=== PATIENT | female | born 1945 | race American Indian/Alaskan Native ===

== ENCOUNTER 2019-08-15 04:25 | Emergency (ER) | payer OTHER ==
[~2019-08-15] VITALS: Ht 149.9 cm; Wt 86.6 kg
[2019-08-15 04:31] VITALS: BP 150/78
[2019-08-15] MEDS: KETOROLAC 60 MG/2 ML VIAL IM ONE (04:56)
[2019-08-15 06:20] VITALS: BP 150/78
== END 2019-08-15 06:20 | disposition home or self-care (01) ==
LOC: MED 04:25
DX: S60.211A Contusion of right wrist, initial encounter (principal); X58.XXXA Exposure to other specified factors, initial encounter; Y93.89 Activity, other specified; Y92.89 Other specified places as the place of occurrence of the external cause; Y99.8 Other external cause status; Z98.890 Other specified postprocedural states
CPT/HCPCS: 73110; 96372; 99283; J1885; Q0092

== ENCOUNTER 2021-08-30 08:00 | Emergency (ER) | payer MEDICARE, OTHER ==
[~2021-08-30] VITALS: Ht 152.4 cm; Wt 83.9 kg
--- NOTE | 2021-08-30 08:12 | NUR ---
pt ambulated to bed 12
[2021-08-30 08:26] VITALS: BP 119/47
[2021-08-30] MEDS ORDERED: DM H118S7 PO (08:30)
--- NOTE | 2021-08-30 08:44 | NUR ---
Patient denied COVID swab states "receiving COVID swab next week". Flu swab collected, sent to lab with Moriah ENRIQUE.
[2021-08-30 09:45] VITALS: BP 119/47
--- NOTE | 2021-08-30 09:45 | NUR ---
Patient discharged with v/s stable. Written and verbal after care instructions given and explained. Patient alert, oriented and verbalized understanding of instructions. Ambulatory with steady gait. All questions addressed prior to discharge. ID band removed. Patient advised to follow up with PMD. Rx of robitussin given. Patient educated on indication of medication including possible reaction and side effects. Opportunity to ask questions provided and answered.
== END 2021-08-30 09:45 | disposition home or self-care (01) ==
LOC: MED 08:00
DX: B34.9 Viral infection, unspecified (principal); E78.5 Hyperlipidemia, unspecified; Z79.899 Other long term (current) drug therapy
CPT/HCPCS: 87804; 99283; J7030